=== PATIENT | female | born 1975 | race Caucasian/White ===

== ENCOUNTER 2019-01-06 09:18 | Outpatient (CLI) | payer OTHER | END 2019-01-06 21:18 | disposition home or self-care (01) | LOC: SMA 09:18 | PROVIDERS: ATTEND Internal Medicine | DX: R92.2 Inconclusive mammogram (principal) | CPT/HCPCS: 76642; 77066 ==

== ENCOUNTER 2019-04-10 08:27 | Outpatient (CLI) | payer OTHER | END 2019-04-10 21:09 | disposition home or self-care (01) | LOC: SUS 08:27 | PROVIDERS: ATTEND Internal Medicine | DX: R92.2 Inconclusive mammogram (principal) | CPT/HCPCS: 76642 ==